=== PATIENT | female | born 1990 | race Caucasian/White ===

== ENCOUNTER 2019-03-04 22:32 | Emergency (ER) | payer MEDICAID ==
[~2019-03-04] VITALS: Ht 162.6 cm; Wt 53.1 kg
[2019-03-04 23:00] VITALS: Ht 162.6 cm; Wt 53.1 kg
[2019-03-05 02:45] VITALS: BP 112/71
== END 2019-03-05 02:14 | disposition home or self-care (01) ==
LOC: ED 22:32
DX: O99.511 Diseases of the respiratory system complicating pregnancy, first trimester (principal); J10.1 Influenza due to other identified influenza virus with other respiratory manifestations; Z3A.14 14 weeks gestation of pregnancy
CPT/HCPCS: 87804